=== PATIENT | male | born 1975 | race Caucasian/White ===

== ENCOUNTER 2017-04-15 21:24 | Observation (INO) | payer OTHER ==
[~2017-04-15] VITALS: Ht 182.9 cm; Wt 90.7 kg
[~2017-04-15 21:24] MED LIST: AGM875T PO; CARI250T PO; MMT17NA; OXYC-12 PO
--- OUTSIDE RECORDS SUMMARY | 2017-04-15 21:28 | XMS REPORT | Continuity of Care Document ---
Author Author [facility] Organization [facility] Address Unknown Phone Unavailable Allergies Active Description Code Type Severity Reaction Onset Reported/Identified Relationship to Patient Clinical Status Yes No Known Drug Allergies [id number] Drug Allergy Unknown N/ A 08/02/2014 Medications Problems Date Dx Coded Attending Type Code Diagnosis Diagnosed By 08/02/2014 Ot 722.52 08/02/2014 Ot 781.2 Procedures Results Encounters ACCT No. Visit Date/Time Discharge Status Pt. Type Provider Facility Loc./Unit Complaint [id number] 08/02/2014 21:46:00 2014 22:51:00 DIS Emergency TARIQ RIZZO APRN [facility] ER [id number] 04/15/2017 21:25:00 ACT Emergency GLENN BLUNT DO [facility] ER ELEV HR/WEAKNESS/SYNCOPE [id number] 08/27/2010 14:35:00 Document Registration
[2017-04-15] MEDS ORDERED: AMIT75TA2 (21:34)
[2017-04-15] MEDS ORDERED: MORP-34 (21:34)
[2017-04-15] MEDS ORDERED: MORP30TA (21:34)
[2017-04-15] MEDS ORDERED: CARI350T27 (21:34)
[2017-04-15 21:51] LABS: BASOPHILS # (AUTO) 0.1 10^3/uL (0.0-0.1); BASOPHILS % (AUTO) 0 % (0-10); EOSINOPHILS # (AUTO) 0.4 10^3/uL (0.0-0.3); EOSINOPHILS % (AUTO) 3 % (0-10); LYMPHOCYTES # (AUTO) 4.1 X 10^3 (1.0-4.0); LYMPHOCYTES % (AUTO) 29 % (12-44); MEAN CORPUSCULAR HEMOGLOBIN 31 PG (25-34); MEAN CORPUSCULAR HGB CONC 35 G/DL (32-36); MEAN CORPUSCULAR VOLUME 88 FL (80-99); MEAN PLATELET VOLUME 9.1 FL (7.4-10.4); MONOCYTES % (AUTO) 7 % (0-12); NEUTROPHILS # (AUTO) 8.7 X 10^3 (1.8-7.8); NEUTROPHILS % (AUTO) 61 % (42-75); PLATELET COUNT 241 10^3/uL (130-400); RED BLOOD COUNT 5.29 10^6/uL (4.35-5.85); WHITE BLOOD COUNT 14.2 10^3/uL (4.3-11.0)
[2017-04-15 21:54] LABS: PROTHROMBIN TIME PATIENT 13.1 SEC (12.2-14.7)
[2017-04-15 22:03] LABS: BAND NEUTROPHILS 1 %; BASOPHILS % (MANUAL) 0 %; EOSINOPHILS % (MANUAL) 0 %; LYMPHOCYTES % (MANUAL) 39 %; NEUTROPHILS % (MANUAL) 57 %
[2017-04-15 22:13] LABS: ALANINE AMINOTRANSFERASE 27 U/L (0-55); ALBUMIN 4.2 GM/DL (3.2-4.5); ANION GAP 11 MMOL/L (5-14); ASPARTATE AMINO TRANSFERASE 14 U/L (5-34); BILIRUBIN,TOTAL 0.2 MG/DL (0.1-1.0); BLOOD UREA NITROGEN 7 MG/DL (7-18); BUN/CREATININE RATIO 7; CARBON DIOXIDE 28 MMOL/L (21-32); CHLORIDE 101 MMOL/L (98-107); CREATINE KINASE 100 U/L (30-200); CREATININE SERUM 0.94 MG/DL (0.60-1.30); GFR ESTIMATED > 60; GLUCOSE 89 MG/DL (70-105); MAGNESIUM 2.1 MG/DL (1.8-2.4); POTASSIUM 3.8 MMOL/L (3.6-5.0); SODIUM 140 MMOL/L (135-145); TOTAL PROTEIN 7.2 GM/DL (6.4-8.2)
--- NOTE | 2017-04-15 22:22 | ED Cardiac General ---
History of Present Illness General Chief Complaint: Dizziness/Syncope Stated Complaint: ELEV HR/WEAKNESS/SYNCOPE Nursing Triage Note: SYNCOPAL EPISODE Source: patient, spouse History of Present Illness Time seen by provider: 21:40 Initial Comments PT ARRIVES VIA POV FROM HOME AROUND 2014 [place], PT WAS SITTING WATCHING TV, AND HAD SUDDEN ONSET OF RAPID AND POUNDING HEART BEAT, SOME CHEST PAIN, FELT SHORT OF BREATH AND VERY DIZZY AND PASSED OUT, HITTING HIS RIGHT BROW AREA ON PIECE OF FURNITURE HEARD HIM AND FOUND HIM ON THE FLOOR, WAS AWAKE BUT MILDLY CONFUSED FOR A SHORT PERIOD OF TIME PT STATES HIS CHEST STILL FEELS A LITTLE SORE, AND FEELS EXHAUSTED. NO SHORTNESS OF BREATH, NO DIZZINESS, AND NO PALPITATIONS AT THIS TIME AROUND 183, HAD INDIGESTION AND FELT A LITTLE SHORT OF BREATH, BUT DID NOT HAVE THE OTHER SYMPTOMS PT HAS HAD MULTIPLE EPISODES OF RAPID HEART BEAT OVER THE LAST 15 YEARS, BUT ONCE HE DID COME TO HOSPITAL, IT HAD RESOLVED. HAS NEVER WORN A HOLTER MONITOR OR HAD EVALUATION BY A ACUTE DIALYSIS REGISTERED NURSE. HAS NEVER PASSED OUT WITH IT BEFORE Allergies and Home Medications Allergies Coded Allergies: No Known Drug Allergies (Unverified , 08/02/14) Home Medications Amitriptyline HCl 75 Mg Tablet, (Reported) Carisoprodol 350 Mg Tablet, (Reported) Morphine Sulfate 30 Mg Tablet, (Reported) Morphine Sulfate 30 Mg Tablet.er, (Reported) Review of Systems Constitutional: see HPI, dizziness, malaise, weakness EENTM: Other (CONTUSION TO RIGHT BROW) Respiratory: See HPI, Shortness of Air Cardiovascular: See HPI, Chest Pain, Irregular Heart Rate, Lightheadedness, Palpitations, Syncope Gastrointestinal: See HPI, Other (INDIGESTION) Genitourinary: No Symptoms Reported Musculoskeletal: no symptoms reported Skin: no symptoms reported Psychiatric/Neurological: See HPI, Headache, Denies Numbness, Denies Paresthesia Endocrine: No Symptoms Reported Hematologic/Lymphatic: No Symptoms Reported Past Ckuxuxv-Scuzal-Claxot Hx Patient Social History Alcohol Use: Occasionally Uses Number of Drinks Today: 0 Alcohol Beverage of Choice: Beer Recreational Drug Use: No Smoking Status: Current Everyday Smoker Type Used: Cigarettes 2nd Hand Smoke Exposure: Yes Recent Foreign Travel: No Contact w/Someone Who Travel: No Recent Infectious Disease Expo: No Recent Hopitalizations: No Immunizations Up To Date Tetanus Booster (TDap): Unknown Seasonal Allergies Seasonal Allergies: Yes Surgeries History of Surgeries: Yes (L HAND) Surgeries: Orthopedic Respiratory History of Respiratory Disorde: No Cardiovascular History of Cardiac Disorders: Yes Cardiac Disorders: Palpitations Neurological History of Neurological Disord: No Reproductive System Hx Reproductive Disorders: No Sexually Transmitted Disease: No Genitourinary History of Genitourinary Disor: No Gastrointestinal History of Gastrointestinal Di: No Musculoskeletal History of Musculoskeletal Dis: Yes Musculoskeletal Disorders: Chronic Back Pain Endocrine History of Endocrine Disorders: No HEENT History of HEENT Disorders: No Cancer History of Cancer: No Psychosocial History of Psychiatric Problem: No Integumentary History of Skin or Integumenta: No Blood Transfusions History of Blood Disorders: No Physical Exam Vital Signs Vital Sign - Last 12Hours 04/15/17 04/15/17 21:30 21:35 Temp 97.9 Pulse 91 Resp 18 B/P (MAP) 140/101 (114) Pulse Ox 99 O2 Delivery Room Air Capillary Refill : Less Than 3 Seconds General Appearance: No Apparent Distress, WD/WN, Other (MILDLY LETHARGIC) HEENT: PERRL/EOMI, Other (CONTUSION/HEMATOMA TO RIGHT BROW) Neck: Full Range of Motion, Normal Inspection, Non Tender, Supple Respiratory: Normal Breath Sounds, No Accessory Muscle Use, No Respiratory Distress Cardiovascular: Regular Rate, Rhythm, No Edema, No JVD, No Murmur, Normal Peripheral Pulses Gastrointestinal: Normal Bowel Sounds, No Organomegaly, No Pulsatile Mass, Non Tender, Soft Extremity: Normal Capillary Refill, Normal Inspection, Normal Range of Motion, Non Tender, No Calf Tenderness, No Pedal Edema Neurologic/Psychiatric: Alert, Oriented x3, No Motor/Sensory Deficits, Normal Mood/Affect, 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 Skin: Normal Color, Warm/Dry, No Rash Progress/Results/Core Measures Results/Orders Lab Results Laboratory Tests Test 04/15/17 21:34 04/15/17 21:48 Range/Units White Blood Count 14.2 H 4.3-11.0 10^3/uL Red Blood Count 5.29 4.35-5.85 10^6/uL Hemoglobin 16.3 13.3-17.7 G/DL Hematocrit 47 40-54 % Mean Corpuscular Volume 88 80-99 FL Mean Corpuscular Hemoglobin 31 25-34 PG Mean Corpuscular Hemoglobin Concent 35 32-36 G/DL Red Cell Distribution Width 13.0 10.0-14.5 % Platelet Count 241 130-400 10^3/uL Mean Platelet Volume 9.1 7.4-10.4 FL Neutrophils (%) (Auto) 61 42-75 % Lymphocytes (%) (Auto) 29 12-44 % Monocytes (%) (Auto) 7 0-12 % Eosinophils (%) (Auto) 3 0-10 % Basophils (%) (Auto) 0 0-10 % Neutrophils # (Auto) 8.7 H 1.8-7.8 X 10^3 Lymphocytes # (Auto) 4.1 H 1.0-4.0 X 10^3 Monocytes # (Auto) 1.0 0.0-1.0 X 10^3 Eosinophils # (Auto) 0.4 H 0.0-0.3 10^3/uL Basophils # (Auto) 0.1 0.0-0.1 10^3/uL Neutrophils % (Manual) 57 % Lymphocytes % (Manual) 39 % Monocytes % (Manual) 3 % Eosinophils % (Manual) 0 % Basophils % (Manual) 0 % Band Neutrophils 1 % Blood Morphology Comment NORMAL Prothrombin Time 13.1 12.2-14.7 SEC INR Comment 1.0 0.8-1.4 Activated Partial Thromboplast Time 30 24-35 SEC Sodium Level 140 135-145 MMOL/L Potassium Level 3.8 3.6-5.0 MMOL/L Chloride Level 101 98-107 MMOL/L Carbon Dioxide Level 28 21-32 MMOL/L Anion Gap 11 5-14 MMOL/L Blood Urea Nitrogen 7 7-18 MG/DL Creatinine 0.94 0.60-1.30 MG/DL Estimat Glomerular Filtration Rate > 60 BUN/Creatinine Ratio 7 Glucose Level 89 70-105 MG/DL Calcium Level 9.0 8.5-10.1 MG/DL Magnesium Level 2.1 1.8-2.4 MG/DL Total Bilirubin 0.2 0.1-1.0 MG/DL Aspartate Amino Transf (AST/SGOT) 14 5-34 U/L Alanine Aminotransferase (ALT/SGPT) 27 0-55 U/L Alkaline Phosphatase 78 40-136 U/L Total Creatine Kinase 100 30-200 U/L Creatine Kinase MB 0.9 <6.6 NG/ML Troponin I < 0.30 <0.30 NG/ML B-Type Natriuretic Peptide < 10.0 <100.0 PG/ML Total Protein 7.2 6.4-8.2 GM/DL Albumin 4.2 3.2-4.5 GM/DL TSH [place] Testing 2.17 0.35-4.94 UIU/ML Glucometer 97 70-110 MG/DL My Orders Orders - GLENN BLUNT DO Accucheck Stat ONCE (04/15/17 21:39) Saline Lock/Iv-Start (04/15/17 21:39) Ekg Tracing (04/15/17 21:39) O2 (04/15/17 21:39) Monitor-Rhythm Ecg Trace Only (04/15/17 21:39) Ct Head Wo-R/O Stroke (04/15/17 21:39) BNP (04/15/17 21:39) Cbc With Automated Diff (04/15/17 21:39) Comprehensive Metabolic Panel (04/15/17 21:39) Creatine Kinase (04/15/17 21:39) Creatine Kinase Mb (04/15/17 21:39) Drug Screen Stat (Urine) (04/15/17 21:39) Magnesium (04/15/17 21:39) Protime With Inr (04/15/17 21:39) Partial Thromboplastin Time (04/15/17 21:39) Thyroid Analyzer (04/15/17 21:39) Troponin I (04/15/17 21:39) Ua Culture If Indicated (04/15/17 21:39) Chest 1 View, Ap/Pa Only (04/15/17 21:39) Manual Differential (04/15/17 21:34) Vital Signs/I&O Vital Sign - Last 12Hours 04/15/17 04/15/17 21:30 21:35 Temp 97.9 Pulse 91 Resp 18 B/P (MAP) 140/101 (114) Pulse Ox 99 99 O2 Delivery Room Air Room Air Blood Pressure Mean: 114 Point of Care Testing Finger Stick Blood Glucose: 97 Blood Glucose Action Taken: RN Notified Progress Note : Progress Note UNEVENTFUL ER STAY ECG Initial ECG Impression Time: 21:29 Initial ECG Rate: 93 Initial ECG Rhythm: Normal Sinus Initial ECG Comparisson: No Previous ECG Available EKG : EKG Time: 21:48 Rate: 87 Rhythm: Normal Sinus Intervals: Normal Diagnostic Imaging Comments CT HEAD-NO ACUTE PROCESS, PER [facility] VIA FAX @ 0625 CXR--NO ACUTE PROCESS, PENDING RADIOLOGIST REVIEW Reviewed: Reviewed by Me Departure Communication (Admissions) Progress Notes 2309--ATTEMPTING TO CONTACT DR. POTTS, MESSAGE LEFT ON CELL PHONE [phone]--ATTEMPTING TO CONTACT DR. POTTS, MESSAGE LEFT ON CELL PHONE, NO ANSWER ON HOME PHONE [phone]--SPOKE WITH DR. AREVALO, ACCEPTS PT FOR ADMIT [phone]--SPOKE WITH DR. POTTS, WILL SEE PT IN CONSULT Impression Impression: Primary Impression: PALPITATIONS WITH SYNCOPE Additional Impressions: Chest pain Head contusion Disposition: ADMITTED INPATIENT Condition: Stable Admissions Decision to Admit Reason: Admit from ER (General) Decision to Admit/Date: Apr 15, 2017 Time/Decision to Admit Time: 23:40 Departure-Patient Inst. Referrals: NO,LOCAL PHYSICIAN (PCP/Family) Primary Care Physician GLENN BLUNT DO Apr 15, 2017 22:22
[2017-04-15 22:57] LABS: TROPONIN I < 0.30 NG/ML (<0.30)
[2017-04-15] MEDS ORDERED: ASPIRIN 81 MG CHEW (CHILDREN'S ASA) PO ONE (23:45)
[2017-04-15 23:59] LABS: BILIRUBIN,URINE NEGATIVE (NEGATIVE); KETONES,URINE 1+ (NEGATIVE); LEUKOCYTE ESTERASE ,URINE 1+ (NEGATIVE); NITRITE,URINE NEGATIVE (NEGATIVE); PH,URINE 5 (5-9); PROTEIN,URINE 1+ (NEGATIVE); UROBILINOGEN,URINE 1 MG/DL (NORMAL)
[2017-04-16] VITALS (17 sets, daily range): BP systolic 92–119; BP diastolic 61–86
[2017-04-16 00:07] LABS: CALCIUM OXALATE CRYSTALS,UR RARE /LPF; SQUAMOUS EPITHELIAL CELL,UR RARE /HPF; WBC,URINE RARE /HPF
[2017-04-16] MEDS ORDERED: morphine INJ 4 MG/ML 1 ML (VIAL/SYRINGE) IV PRN (01:30)
[2017-04-16] MEDS ORDERED: CATHETER FLUSH 10 ML SYR IV PRN (01:30)
[2017-04-16] MEDS ORDERED: NITROGLYCERIN 0.4 MG SL TABS BTL 25'S SL PRN (01:30)
[2017-04-16] MEDS ORDERED: 1/2 NS IV SOLUTION 1,000 ML IV SCH (01:30)
[2017-04-16 04:27] LABS: BASOPHILS % (AUTO) 0 % (0-10); EOSINOPHILS # (AUTO) 0.5 10^3/uL (0.0-0.3); EOSINOPHILS % (AUTO) 4 % (0-10); LYMPHOCYTES # (AUTO) 4.2 X 10^3 (1.0-4.0); LYMPHOCYTES % (AUTO) 38 % (12-44); MEAN CORPUSCULAR HEMOGLOBIN 30 PG (25-34); MEAN CORPUSCULAR HGB CONC 34 G/DL (32-36); MEAN CORPUSCULAR VOLUME 89 FL (80-99); MEAN PLATELET VOLUME 9.1 FL (7.4-10.4); MONOCYTES # (AUTO) 0.8 X 10^3 (0.0-1.0); MONOCYTES % (AUTO) 7 % (0-12); NEUTROPHILS # (AUTO) 5.7 X 10^3 (1.8-7.8); NEUTROPHILS % (AUTO) 51 % (42-75); PLATELET COUNT 224 10^3/uL (130-400); RED BLOOD COUNT 4.91 10^6/uL (4.35-5.85); RED CELL DISTRIBUTION WIDTH 13.2 % (10.0-14.5); WHITE BLOOD COUNT 11.2 10^3/uL (4.3-11.0)
[2017-04-16 04:44] LABS: MYOGLOBIN SERUM 32.9 NG/ML (10.0-92.0)
[2017-04-16 04:48] LABS: ALANINE AMINOTRANSFERASE 23 U/L (0-55); ALBUMIN 3.7 GM/DL (3.2-4.5); ANION GAP 10 MMOL/L (5-14); ASPARTATE AMINO TRANSFERASE 13 U/L (5-34); BILIRUBIN,TOTAL 0.2 MG/DL (0.1-1.0); BLOOD UREA NITROGEN 7 MG/DL (7-18); BUN/CREATININE RATIO 8; CALCIUM 8.5 MG/DL (8.5-10.1); CARBON DIOXIDE 27 MMOL/L (21-32); CHLORIDE 101 MMOL/L (98-107); CHOLESTEROL 208 MG/DL (< 200); CREATININE SERUM 0.87 MG/DL (0.60-1.30); DIRECT LDL 151 MG/DL (1-129); GFR ESTIMATED > 60; GLUCOSE 86 MG/DL (70-105); POTASSIUM 4.1 MMOL/L (3.6-5.0); SODIUM 138 MMOL/L (135-145); TOTAL PROTEIN 6.1 GM/DL (6.4-8.2); TRIGLYCERIDES 141 MG/DL (<150); VLDL CHOLESTEROL 28 MG/DL (5-40)
--- NOTE | 2017-04-16 05:59 | Diagnostic Imaging Report ---
Exam: CT head without contrast. TECHNIQUE: Axial CT images of the head were obtained without the use of intravenous contrast. DATE: 04/15/2017. COMPARISON: None. INDICATION: 41-year-old male, headache and syncope. FINDINGS: The ventricles and cerebral spinal fluid spaces are of normal size and configuration for the patient's age. There is no mass effect or midline shift. There is no acute intracranial hemorrhage. There is no abnormal extra-axial fluid collection. There is pneumatization of the left petrous apex. There is a polypoid lesion in the right maxillary sinus likely relating to mucous retention cyst. There is mucosal thickening of the left maxillary sinus. Additional visualized portions of the paranasal sinuses, mastoid air cells, and middle ears are well aerated. IMPRESSION: 1. No identified acute intracranial abnormality. Dictated by: Dictated on workstation # [id number]
[2017-04-16] MEDS ORDERED: CATHETER FLUSH 10 ML SYR IV SCH (06:00)
--- NOTE | 2017-04-16 06:05 | Diagnostic Imaging Report ---
EXAMINATION: Chest radiograph, portable AP view. DATE: April 15, 2017 at 2203 hours. INDICATION: 41-year-old male, syncope. Chest pain. Headache. COMPARISON: None. FINDINGS: Heart size and mediastinal contours are unremarkable. There is no identified pneumothorax. There is no large pleural effusion. There is no identified focal airspace consolidation. IMPRESSION: No identified acute cardiopulmonary abnormality. Dictated by: Dictated on workstation # [id number]
[2017-04-16] MEDS ORDERED: INFLUENZA TRIvalent 2017-2018 0.5 ML/45 MCG SYR IM ONE (08:00)
--- NOTE | 2017-04-16 08:53 | Consultation-Cardiology ---
HPI-Cardiology Cardiology Consultation Date of Consultation 04/16/17 Date of Admission Time Seen by Provider: 08:48 Indication: syncope HPI 41 years old gentleman with history of palpitation, feeling rapid heart rate with some lightheadedness and dizziness lasting between 2-5 minutes for the last 15-20 years occurring about once or twice a year. Last night felt palpitations that lasted longer, he tried to stand up where he fell to the floor and passed out. Found by his who is an ICU nurse at the floor, woke up within a few seconds, felt slightly dizzy for about a minute or 2 then went back to normal. He came to the emergency room, has been monitored overnight and has been feeling well. No further episodes were reported. Admit having some shortness of breath and chest pain during the rapid heart rate episodes. Drinks large amount of coffee and smokes half pack a day. We had a discussion about smoking cessation on avoiding caffeine products Home Medications & Allergies Allergies: Coded Allergies: No Known Drug Allergies (Unverified , 08/02/14) Home Medication List Reviewed: Yes HYP-Fvccim-Zagtrs Hx Patient Social History Marital Status: Employed/Student: employed Alcohol Use: Denies Use Recreational Drug Use: No Smoking Status: Current Everyday Smoker Type Used: Cigarettes 2nd Hand Smoke Exposure: Yes Recent Foreign Travel: No Recent Infectious Disease Expo: No Recent Hopitalizations: No Physical Abuse Screen: No Sexual Abuse: No Immunizations Up To Date Tetanus Booster (TDap): Unknown Past Medical History Back pain Palpitation Dizziness Family Medical History Family Medical Hx grandmother had history of heart attack and sudden in her 60s Constitutional: see HPI, dizziness EENTM: see HPI, no symptoms reported Respiratory: see HPI, No cough, No dyspnea on exertion, No hemoptysis, No orthopnea, No phlegm, No short of breath, No stridor, No wheezing, other ( dyspnea during palpitation episode) Cardiovascular: see HPI, chest pain, palpitations, syncope, other Gastrointestinal: no symptoms reported, see HPI Genitourinary: no symptoms reported, see HPI Musculoskeletal: no symptoms reported, see HPI, back pain, joint pain, muscle stiffness Skin: no symptoms reported, see HPI Psychiatric/Neurological: No Symptoms Reported, See HPI Reviewed Test Results Reviewed Test Results Lab Laboratory Tests Test 04/15/17 21:34 04/15/17 21:48 04/15/17 23:50 12/9/17 03:44 Range/Units White Blood Count 14.2 H 11.2 H 4.3-11.0 10^3/uL Red Blood Count 5.29 4.91 4.35-5.85 10^6/uL Hemoglobin 16.3 14.9 13.3-17.7 G/DL Hematocrit 47 44 40-54 % Mean Corpuscular Volume 88 89 80-99 FL Mean Corpuscular Hemoglobin 31 30 25-34 PG Mean Corpuscular Hemoglobin Concent 35 34 32-36 G/DL Red Cell Distribution Width 13.0 13.2 10.0-14.5 % Platelet Count 241 224 130-400 10^3/uL Mean Platelet Volume 9.1 9.1 7.4-10.4 FL Neutrophils (%) (Auto) 61 51 42-75 % Lymphocytes (%) (Auto) 29 38 12-44 % Monocytes (%) (Auto) 7 7 0-12 % Eosinophils (%) (Auto) 3 4 0-10 % Basophils (%) (Auto) 0 0 0-10 % Neutrophils # (Auto) 8.7 H 5.7 1.8-7.8 X 10^3 Lymphocytes # (Auto) 4.1 H 4.2 H 1.0-4.0 X 10^3 Monocytes # (Auto) 1.0 0.8 0.0-1.0 X 10^3 Eosinophils # (Auto) 0.4 H 0.5 H 0.0-0.3 10^3/uL Basophils # (Auto) 0.1 0.0 0.0-0.1 10^3/uL Neutrophils % (Manual) 57 % Lymphocytes % (Manual) 39 % Monocytes % (Manual) 3 % Eosinophils % (Manual) 0 % Basophils % (Manual) 0 % Band Neutrophils 1 % Blood Morphology Comment NORMAL Prothrombin Time 13.1 12.2-14.7 SEC INR Comment 1.0 0.8-1.4 Activated Partial Thromboplast Time 30 24-35 SEC Sodium Level 140 138 135-145 MMOL/L Potassium Level 3.8 4.1 3.6-5.0 MMOL/L Chloride Level 101 101 98-107 MMOL/L Carbon Dioxide Level 28 27 21-32 MMOL/L Anion Gap 11 10 5-14 MMOL/L Blood Urea Nitrogen 7 7 7-18 MG/DL Creatinine 0.94 0.87 0.60-1.30 MG/DL Estimat Glomerular Filtration Rate > 60 > 60 BUN/Creatinine Ratio 7 8 Glucose Level 89 86 70-105 MG/DL Calcium Level 9.0 8.5 8.5-10.1 MG/DL Magnesium Level 2.1 1.8-2.4 MG/DL Total Bilirubin 0.2 0.2 0.1-1.0 MG/DL Aspartate Amino Transf (AST/SGOT) 14 13 5-34 U/L Alanine Aminotransferase (ALT/SGPT) 27 23 0-55 U/L Alkaline Phosphatase 78 72 40-136 U/L Total Creatine Kinase 100 30-200 U/L Creatine Kinase MB 0.9 <6.6 NG/ML Troponin I < 0.30 < 0.30 <0.30 NG/ML B-Type Natriuretic Peptide < 10.0 <100.0 PG/ML Total Protein 7.2 6.1 L 6.4-8.2 GM/DL Albumin 4.2 3.7 3.2-4.5 GM/DL TSH [place] Testing 2.17 0.35-4.94 UIU/ML Glucometer 97 70-110 MG/DL Urine Color YELLOW Urine Clarity CLEAR Urine pH 5 5-9 Urine Specific [place] 1.025 H 1.016-1.022 Urine Protein 1+ H NEGATIVE Urine Glucose (UA) NEGATIVE NEGATIVE Urine Ketones 1+ H NEGATIVE Urine Nitrite NEGATIVE NEGATIVE Urine Bilirubin NEGATIVE NEGATIVE Urine Urobilinogen 1 NORMAL MG/DL Urine Leukocyte Esterase 1+ H NEGATIVE Urine RBC (Auto) NEGATIVE NEGATIVE Urine RBC NONE /HPF Urine WBC RARE /HPF Urine Squamous Epithelial Cells RARE /HPF Urine Crystals PRESENT H /LPF Urine Calcium Oxalate Crystals RARE H /LPF Urine Bacteria TRACE /HPF Urine Casts NONE /LPF Urine Mucus MODERATE H /LPF Urine Culture Indicated NO Urine Opiates Screen POSITIVE H NEGATIVE Urine Oxycodone Screen NEGATIVE NEGATIVE Urine Methadone Screen NEGATIVE NEGATIVE Urine Propoxyphene Screen NEGATIVE NEGATIVE Urine Barbiturates Screen NEGATIVE NEGATIVE Ur Tricyclic Antidepressants Screen POSITIVE H NEGATIVE Urine Phencyclidine Screen NEGATIVE NEGATIVE Urine Amphetamines Screen NEGATIVE NEGATIVE Urine Methamphetamines Screen NEGATIVE NEGATIVE Urine Benzodiazepines Screen NEGATIVE NEGATIVE Urine Cocaine Screen NEGATIVE NEGATIVE Urine Cannabinoids Screen NEGATIVE NEGATIVE Myoglobin 32.9 10.0-92.0 NG/ML Triglycerides Level 141 <150 MG/DL Cholesterol Level 208 H < 200 MG/DL LDL Cholesterol Direct 151 H 1-129 MG/DL VLDL Cholesterol 28 5-40 MG/DL HDL Cholesterol 38 L 40-60 MG/DL Physical Exam Vital Signs Vital Sign - Last 12Hours 04/15/17 04/15/17 21:30 21:35 Temp 97.9 Pulse 91 Resp 18 B/P (MAP) 140/101 (114) Pulse Ox 99 O2 Delivery Room Air Capillary Refill : Less Than 3 Seconds General Appearance: No Apparent Distress, WD/WN Eyes: Bilateral Eye Normal Inspection, Bilateral Eye PERRL, Bilateral Eye EOMI HEENT: PERRL/EOMI, TMs Normal, Normal ENT Inspection, Pharynx Normal Neck: Full Range of Motion, Normal Inspection, Non Tender, Supple, Carotid Bruit Respiratory: Chest Non Tender, Lungs Clear, Normal Breath Sounds, No Accessory Muscle Use, No Respiratory Distress Cardiovascular: Regular Rate, Rhythm, No Edema, No Gallop, No JVD, No Murmur, Normal Peripheral Pulses Gastrointestinal: Normal Bowel Sounds, No Organomegaly, No Pulsatile Mass, Non Tender, Soft Back: Normal Inspection, No CVA Tenderness, No Vertebral Tenderness Extremity: Normal Capillary Refill, Normal Inspection, Normal Range of Motion, Non Tender, No Calf Tenderness, No Pedal Edema Neurologic/Psychiatric: Alert, Oriented x3, No Motor/Sensory Deficits, Normal Mood/Affect Skin: Normal Color, Warm/Dry Lymphatic: No Adenopathy A/P-Cardiology Admission Diagnosis Syncope Palpitation Hyperlipidemia Tobaccoism Assessment/Plan Syncope, associated with palpitation, questionable underlying arrhythmia. EKG did not show any acute abnormality. Labs were normal except for hyperlipidemia. I am planning to evaluate echocardiogram, Holter monitor and stress test. Recommended avoiding caffeine at this point. Hyperlipidemia, continue to monitor, diet control at this time. Tobaccoism, educated on avoiding tobacco product Heavy caffeine use, educated on avoiding caffeine Chronic back pain, degenerative disc disease in L4-L5 and L5-S1, maintained on pain medication, managed by primary care physician Clinical Quality Measures DVT/VTE Risk/Contraindication: Risk Factor Score Per Nursin RFS Level Per Nursing on Admit: 2=Moderate LESTER POTTS MD Apr 16, 2017 08:53
[2017-04-16] MEDS ORDERED: ASPIRIN E.C. 325 MG (ECOTRIN) TABLET PO SCH (09:00)
--- NOTE | 2017-04-16 09:42 | Short Stay Summary-Hospitalist ---
HPI History of Present Illness: HPI/Chief Complaint Pt is a 41yoCM with a PMH of chronic pain who presented to the ER yesterday after being found down by his . He reports he felt his heart start to race and developed chest pain and throat pain. He also felt lightheaded during this. He believes he tried to stand up and then passed out. His found his face down on the floor and felt that he was still breathing and had a pulse. He awoke roughly 20s after this and was confused for another 20s or so. did not witness any convulsions. He did not bite his tongue or have any bladder or bowel incontinence. He did feel more tired yesterday with some SOB and what he thought was heartburn. He reports this has been happening for 15-16 years and has happened about 12 times but he does have episodes of his heart racing in between where he doesn't pass out. Source: patient, family Date Seen 04/16/17 Time Seen by Provider: 09:20 Attending Physician Ede Grady MD PCP No,Local Physician Referring Physician Date of Admission Apr 15, 2017 at 11:40 pm Home Medications & Allergies Home Medications Reviewed patient Home Medication Reconciliation Form Allergies Allergies Coded Allergies No Known Drug Allergies (Unverified08/02/14) Past Phpqehb-Rfrokv-Bjeatw Hx Patient Social History Marrital Status: Employed/Student: employed Alcohol Use: Denies Use Number of Drinks Today: 0 Alcohol Beverage of Choice: Beer Recreational Drug Use: No Smoking Status: Current Everyday Smoker Type Used: Cigarettes 2nd Hand Smoke Exposure: Yes Physical Abuse Screen: No Sexual Abuse: No Recent Foreign Travel: No Contact w/other who traveled: No Recent Hopitalizations: No Recent Infectious Disease Expo: No Immunizations Up To Date Tetanus Booster (TDap): Unknown Seasonal Allergies Seasonal Allergies: Yes Surgeries Yes (L HAND) Orthopedic Respiratory No Cardiovascular Yes Palpitations Neurological No Reproductive System Hx Reproductive Disorders: No Sexually Transmitted Disease: No Genitourinary No Gastrointestinal No Musculoskeletal Yes (needs back surgery) Chronic Back Pain Endocrine History of Endocrine Disorders: No HEENT History of HEENT Disorders: No Cancer No Psychosocial History of Psychiatric Problem: No Integumentary History of Skin or Integumenta: No Blood Transfusions History of Blood Disorders: No Review of Systems Constitutional: No chills, No diaphoresis, No fever EENTM: No blurred vision, No double vision, No vision loss, No nose congestion , No throat pain Respiratory: No cough, No dyspnea on exertion, short of breath Cardiovascular: chest pain, No edema, palpitations, syncope Gastrointestinal: No abdominal pain, No constipation, No diarrhea, No nausea, No vomiting Genitourinary: No dysuria, No frequency Musculoskeletal: back pain (chronic), No joint pain, No muscle pain Skin: No lesions, No rash Psychiatric/Neurological: Denies Headache, Denies Numbness, Denies Tingling, Denies Weakness Physical Exam Physical Exam Vital Signs Vital Sign - Last 12Hours 04/15/17 04/15/17 21:30 21:35 Temp 97.9 Pulse 91 Resp 18 B/P (MAP) 140/101 (114) Pulse Ox 99 O2 Delivery Room Air Capillary Refill : Less Than 3 Seconds General Appearance: No Apparent Distress, WD/WN HEENT: PERRL/EOMI, Moist Mucous Membranes Neck: Non Tender, Supple Respiratory: Lungs Clear, No Respiratory Distress Cardiovascular: Regular Rate, Rhythm, No Murmur Gastrointestinal: Normal Bowel Sounds, Non Tender, Soft Extremity: Non Tender, No Calf Tenderness, No Pedal Edema Neurologic/Psychiatric: Alert, Oriented x3, Normal Mood/Affect Skin: Normal Color, Warm/Dry Results Results/Procedures Lab Laboratory Tests 04/15/17 21:34 04/16/17 03:44 Radiology Exam: CT head without contrast. TECHNIQUE: Axial CT images of the head were obtained without the use of intravenous contrast. DATE: 04/15/2017. COMPARISON: None. INDICATION: 41-year-old male, headache and syncope. FINDINGS: The ventricles and cerebral spinal fluid spaces are of normal size and configuration for the patient's age. There is no mass effect or midline shift. There is no acute intracranial hemorrhage. There is no abnormal extra-axial fluid collection. There is pneumatization of the left petrous apex. There is a polypoid lesion in the right maxillary sinus likely relating to mucous retention cyst. There is mucosal thickening of the left maxillary sinus. Additional visualized portions of the paranasal sinuses, mastoid air cells, and middle ears are well aerated. IMPRESSION: 1. No identified acute intracranial abnormality. CHEST 1 VIEW, AP/PA ONLY EXAMINATION: Chest radiograph, portable AP view. DATE: April 15, 2017 at 2203 hours. INDICATION: 41-year-old male, syncope. Chest pain. Headache. COMPARISON: None. FINDINGS: Heart size and mediastinal contours are unremarkable. There is no identified pneumothorax. There is no large pleural effusion. There is no identified focal airspace consolidation. IMPRESSION: No identified acute cardiopulmonary abnormality. Short Stay Diagnosis Discharge Diagnosis-Short Stay Admission Diagnosis Syncope Final Discharge Diagnosis Syncope Conclusion Plan See problems Diagnosis/Problems Diagnosis/Problems (1) Syncope and collapse Status: Acute Assessment & Plan: Given history and current symptoms likely cardiac in nature Echo done today. Dr Jeffers currently reading- per verbal report no significant abnormalities. Cardiology consulted Will schedule for outpatient tilt table,holter monitor, and stress test per Dr. Jeffers's office is Rn who will facilitate adequate follow up (2) Chronic pain Status: Chronic Assessment & Plan: Continue current pain medicines Qualifiers: Qualified Codes: G89.29 - Other chronic pain (3) Leukocytosis Status: Acute Assessment & Plan: Likely reactive No signs of infection or sepsis (4) Hyperlipidemia Assessment & Plan: LDL 151 ASCVD risk 5.4% Clinical Quality Measures DVT/VTE Risk/Contraindication: Risk Factor Score Per Nursin RFS Level Per Nursing on Admit: 2=Moderate EDE GRADY MD Apr 16, 2017 09:42
[2017-04-16] MEDS ORDERED: MORP-34 PO (09:52)
[2017-04-16] MEDS ORDERED: MORP15TA PO (09:52)
== END 2017-04-16 11:02 | disposition home or self-care (01) ==
LOC: EDUNIT# 21:24 → ER 21:25 → ICU 23:40
PROVIDERS: ADMIT Family Medicine; ATTEND Family Medicine
DX: R55 Syncope and collapse (principal); R00.2 Palpitations; S00.83XA Contusion of other part of head, initial encounter; E78.5 Hyperlipidemia, unspecified; M51.36 Other intervertebral disc degeneration, lumbar region; M51.37 Other intervertebral disc degeneration, lumbosacral region; G89.29 Other chronic pain; R07.9 Chest pain, unspecified; Z79.899 Other long term (current) drug therapy; F17.210 Nicotine dependence, cigarettes, uncomplicated; Y92.019 Unspecified place in single-family (private) house as the place of occurrence of the external cause; W01.190A Fall on same level from slipping, tripping and stumbling with subsequent striking against furniture, initial encounter
CPT/HCPCS: 36415; 70450; 71010; 80053; 80061; 80306; 81000; 82550; 82553; 82962; 83735; 83874; 83880; 84443; 84484; 85007; 85025; 85027; 85610; 85730; 93005; 93041; 93306

== ENCOUNTER 2017-04-18 12:53 | Outpatient (RCR) | payer OTHER ==
[~2017-04-18 12:53] MED LIST changes: +AMIT75TA2; +CARI350T27; +MORP-34; +MORP-34 PO; +MORP15TA PO; +MORP30TA
== END 2017-07-17 | disposition home or self-care (01) ==
LOC: CARD 12:53
PROVIDERS: ATTEND Internal Medicine Cardiovascular Disease
DX: R55 Syncope and collapse (principal); R07.89 Other chest pain; R00.2 Palpitations
CPT/HCPCS: 93225; 93226

== ENCOUNTER → 2017-04-25 | Outpatient (CLI) | payer OTHER | LOC: CARD 08:46 | PROVIDERS: ATTEND Internal Medicine Cardiovascular Disease | DX: R07.89 Other chest pain (principal); R00.2 Palpitations; R55 Syncope and collapse | CPT/HCPCS: 93017 ==

== ENCOUNTER 2019-01-01 14:37 | Outpatient (RCR) | payer OTHER | END 2019-04-01 | disposition home or self-care (01) | LOC: CARD 14:37 | PROVIDERS: ATTEND Internal Medicine Interventional Cardiology | DX: R55 Syncope and collapse (principal); E78.49 Other hyperlipidemia; R00.2 Palpitations; Z72.0 Tobacco use | CPT/HCPCS: 93306 ==

== ENCOUNTER 2021-04-22 20:57 | Emergency (ER) | payer OTHER ==
[~2021-04-22] VITALS: Ht 185.2 cm; Wt 97.5 kg
[~2021-04-22 20:57] MED LIST changes: -MORP-34; -MORP-34 PO; +MORP-69; +MORP-69 PO
[2021-04-22] MEDS ORDERED: PROCHLORPERAZINE 10 MG/2ML INJ (COMPAZINE) IV ONE (21:00)
[2021-04-22] MEDS ORDERED: LACTATED RINGERS 1,000 ML IV SCH (21:00)
[2021-04-22] MEDS ORDERED: diphenhydrAMINE 50 MG/ML INJ (BENADRYL) IVP ONE (21:00)
[2021-04-22] MEDS ORDERED: KETOROLAC 30 MG/ML VIAL IVP ONE (21:00)
[2021-04-22] MEDS ORDERED: CATHETER FLUSH 10 ML SYR IV PRN (21:15)
[2021-04-22] MEDS ORDERED: NS 100 ML (IVPB) BAG IV ONE (21:15)
[2021-04-22] MEDS ORDERED: IOHEXOL 350 MG/ML 100 ML (OMNIPAQUE 350) VIAL IV ONE (21:15)
[2021-04-22] MEDS ORDERED: HOLD METFORMIN - RECEIVED CONTRAST 20 ML VIAL IV SCH (21:15)
[2021-04-22 21:23] LABS: BASOPHILS # (AUTO) 0.1 10^3/uL (0.0-0.1); BASOPHILS % (AUTO) 0 % (0-10); EOSINOPHILS # (AUTO) 0.3 10^3/uL (0.0-0.3); EOSINOPHILS % (AUTO) 2 % (0-10); HEMATOCRIT 48 % (40-54); HEMOGLOBIN 16.8 g/dL (13.3-17.7); LYMPHOCYTES # (AUTO) 4.7 10^3/uL (1.0-4.0); LYMPHOCYTES % (AUTO) 34 % (12-44); MEAN CORPUSCULAR HEMOGLOBIN 31 pg (25-34); MEAN CORPUSCULAR HGB CONC 35 g/dL (32-36); MEAN CORPUSCULAR VOLUME 89 fL (80-99); MEAN PLATELET VOLUME 8.9 fL (9.0-12.2); MONOCYTES # (AUTO) 0.9 10^3/uL (0.0-1.0); MONOCYTES % (AUTO) 7 % (0-12); NEUTROPHILS # (AUTO) 7.8 10^3/uL (1.8-7.8); NEUTROPHILS % (AUTO) 56 % (42-75); PLATELET COUNT 298 10^3/uL (130-400); WHITE BLOOD COUNT 13.9 10^3/uL (4.3-11.0)
--- NOTE | 2021-04-22 21:23 | ED Headache ---
General Stated Complaint: HEADACHE Source: patient Exam Limitations: no limitations (TARIQ RIZZO APRN) History of Present Illness Date Seen by Provider: Apr 22, 2021 Time Seen by Provider: 21:21 Initial Comments To ER by private vehicle with reports of headaches. These have been severe and new in onset. They began on Tuesday (today is Tuesday) he denies fever chills or head injury. No history of migraines. Light worsens these headaches and soda as well as noise. This was in the front of his head bilaterally and a little in the back as well. He does have associated nausea and vomiting. He has had both Covid vaccines. He denies any other symptoms. He has chronic back pain and is on long-acting morphine and Soma for this. Denies any vision changes. States that the headache began as a mild ache and progressed throughout the course of several days and this was not a sudden onset or thunderclap style headache. Timing/Duration: 1 week, constant Severity/Quality: pressure Location: frontal Prior Headaches/Recent Trauma: no recent headache/trauma Associated Symptoms: nausea/vomiting (TARIQ RIZZO APRN) Allergies and Home Medications Allergies Coded Allergies: No Known Drug Allergies (Unverified , 08/02/14) Patient Home Medication List Home Medication List Reviewed: Yes (TARIQ RIZZO APRN) Amitriptyline HCl (Amitriptyline HCl) 75 Mg Tablet, (Reported) Entered as Reported by: HUSSEIN ROBLES on 04/15/172133 Carisoprodol (Carisoprodol) 350 Mg Tablet, (Reported) Entered as Reported by: HUSSEIN ROBLES on 04/15/172133 Ketorolac Tromethamine (Ketorolac Tromethamine) 10 Mg Tablet, 10 MG PO BID PRN for HEADACHE Prescribed by: TARIQ RIZZO on 04/22/21 2348 Morphine Sulfate (Morphine Sulfate ER) 30 Mg Tablet.er, 30 MG PO TID Prescribed by: EDE AREVALO on 04/16/17951 Morphine Sulfate (Morphine Sulfate IR Tablet) 15 Mg Tablet, 15 MG PO Q4H Prescribed by: EDE AREVALO on 04/16/1752 Ondansetron (Ondansetron Odt) 8 Mg Tab.rapdis, 8 MG PO Q6H Prescribed by: GLENN BLUNT on 04/23/21 0037 Prochlorperazine Maleate (Compazine) 10 Mg Tablet, 10 MG PO BID PRN for HEADACHE Prescribed by: TARIQ RIZZO on 04/22/21 2348 Sumatriptan Succinate (Imitrex) 50 Mg Tab, 50 MG PO BID PRN for HEADACHE Prescribed by: TARIQ RIZZO on 04/22/21 2348 Review of Systems Review of Systems Constitutional: see HPI; No chills, No fever Eyes: No Symptoms Reported Ears, Nose, Mouth, Throat: no symptoms reported Respiratory: no symptoms reported Cardiovascular: no symptoms reported Genitourinary: no symptoms reported Musculoskeletal: no symptoms reported Skin: no symptoms reported Psychiatric/Neurological: See HPI, Headache (TARIQ RIZZO APRN) Past Hmvrwkg-Cuggnw-Vncmcz Hx Immunizations Up To Date Tetanus Booster (TDap): Unknown (TARIQ RIZZO APRN) Seasonal Allergies Seasonal Allergies: Yes (TARIQ RIZZO APRN) Past Medical History Surgeries: Yes (L HAND) Orthopedic Respiratory: No Cardiac: Yes Palpitations Neurological: No Reproductive Disorders: No Sexually Transmitted Disease: No Genitourinary: No Gastrointestinal: No Musculoskeletal: Yes (needs back surgery) Chronic Back Pain Endocrine: No HEENT: No Cancer: No Psychosocial: No Integumentary: No Blood Disorders: No (TARIQ RIZZO APRN) Physical Exam Vital Signs Vital Signs - First Documented 04/22/21 21:05 Temp 36.0 Pulse 89 Resp 16 B/P (MAP) 147/98 (114) Pulse Ox 98 O2 Delivery Room Air (JOSE RAUL,GLENN K DO) Vital Signs Capillary Refill : (TARIQ RIZZO APRN) Height, Weight, BMI Height: 6'0.00" Weight: 200lbs. 0.0oz. 90.300153ol; 27.1 BMI Method:Stated General Appearance: WD/WN, no apparent distress, other (vomiting here, rates pain 10/10) HEENT: PERRL/EOMI, normal ENT inspection Respiratory: no respiratory distress, no accessory muscle use Gastrointestinal: normal bowel sounds, non tender, soft Extremities: normal range of motion, non-tender Psychiatric: alert, oriented x 3 Crainal Nerves: normal hearing, normal speech, PERRL Skin: normal color, warm/dry (TARIQ RIZZO APRN) Progress/Results/Core Measures Results/Orders Lab Results Laboratory Tests Test 04/22/21 21:10 Range/Units White Blood Count 13.9 H 4.3-11.0 10^3/uL Red Blood Count 5.45 4.30-5.52 10^6/uL Hemoglobin 16.8 13.3-17.7 g/dL Hematocrit 48 40-54 % Mean Corpuscular Volume 89 80-99 fL Mean Corpuscular Hemoglobin 31 25-34 pg Mean Corpuscular Hemoglobin Concent 35 32-36 g/dL Red Cell Distribution Width 12.5 10.0-14.5 % Platelet Count 298 130-400 10^3/uL Mean Platelet Volume 8.9 L 9.0-12.2 fL Immature Granulocyte % (Auto) 0 % Neutrophils (%) (Auto) 56 42-75 % Lymphocytes (%) (Auto) 34 12-44 % Monocytes (%) (Auto) 7 0-12 % Eosinophils (%) (Auto) 2 0-10 % Basophils (%) (Auto) 0 0-10 % Neutrophils # (Auto) 7.8 1.8-7.8 10^3/uL Lymphocytes # (Auto) 4.7 H 1.0-4.0 10^3/uL Monocytes # (Auto) 0.9 0.0-1.0 10^3/uL Eosinophils # (Auto) 0.3 0.0-0.3 10^3/uL Basophils # (Auto) 0.1 0.0-0.1 10^3/uL Immature Granulocyte # (Auto) 0.0 0.0-0.1 10^3/uL Erythrocyte Sedimentation Rate 1 0-15 MM/HR Prothrombin Time 13.6 12.2-14.7 SEC INR Comment 1.0 0.8-1.4 Sodium Level 140 135-145 MMOL/L Potassium Level 3.9 3.6-5.0 MMOL/L Chloride Level 103 98-107 MMOL/L Carbon Dioxide Level 22 21-32 MMOL/L Anion Gap 15 H 5-14 MMOL/L Blood Urea Nitrogen 9 7-18 MG/DL Creatinine 0.95 0.60-1.30 MG/DL Estimat Glomerular Filtration Rate 86 BUN/Creatinine Ratio 9 Glucose Level 103 70-105 MG/DL Calcium Level 9.4 8.5-10.1 MG/DL (JOSE RAUL,GLENN K DO) Medications Given in ED Current Medications Medications Dose Ordered Sig/Rola Route Start Time Stop Time Status Last Admin Dose Admin Diphenhydramine HCl 25 mg ONCE ONCE IVP 04/22/21 21:00 04/22/21 21:03 DC 04/22/21 21:30 25 MG Ketorolac Tromethamine 30 mg ONCE ONCE IVP 04/22/21 21:00 04/22/21 21:03 DC 04/22/21 21:35 30 MG Prochlorperazine Edisylate 5 mg ONCE ONCE IV 04/22/21 21:00 04/22/21 21:03 DC 04/22/21 21:32 5 MG (GLENN BLUNT DO) Vital Signs/I&O 04/22/21 04/22/21 04/23/21 21:05 23:50 00:45 Temp 36.0 36.0 Pulse 89 59 61 Resp 16 16 16 B/P (MAP) 147/98 (114) 117/80 97/68 Pulse Ox 98 97 97 O2 Delivery Room Air Room Air 04/23/21 00:00 Intake Total 1000 ml Balance 1000 ml (GLENN BLUNT DO) Progress Progress Note : Progress Note MIDNIGHT--ASSUMED CARE OF PT FROM DELVIS RIZZO, WAITING FOR RETURN PHONE CALL FROM NEUROSURGEON AT [facility] . PT'S CT SCAN IMAGES HAVE BEEN CLOUDED TO THAT FACILITY FOR NEUROSURGEON TO REVIEW. PT IS ESSENTIALLY PAIN-FREE, ONLY MILD RESIDUAL PRESSURE IN HEAD. (GLENN BLUNT DO) Diagnostic Imaging Comments CTA HEAD WITH AND WITHOUT --PER RADIOLOGIST REPORT Comparison made to noncontrast head CT of 04/15/2017. Compared to the prior study, there are new low-density subdural collections over the convexity on both sides, compatible with subdural hygromas or chronic hematomas. The collection on the left measured about 6 mm, collection on the right measuring about 6 mm as well. There is no intraparenchymal hemorrhage. Ventricles are normal in size. There is no intraparenchymal abnormality. Calvarial windows are unremarkable. CTA images demonstrate the distal vertebral arteries and basilar artery and posterior cerebral arteries to be patent. The bolus timing is somewhat poor. Distal internal carotid arteries and anterior cerebral arteries are unremarkable. The dural venous sinuses are patent. IMPRESSION: There are bilateral low-density subdural collections compatible with subdural hygromas or chronic hematomas. The subdural collections are symmetric on both sides measuring 6 mm. There is no intraparenchymal hemorrhage. There is no enhancing intracranial lesion. CTA images demonstrate no overt vascular abnormalities. Reviewed: Reviewed by Me (GLENN BLUNT DO) Departure Communication (Admissions) 1130-pain was 10 out of 10 on arrival now he rates it 1 out of 10. I have sent the images to [facility] in [place] and I am awaiting a phone call back from their neurosurgery service to advise if there is any need for emergent neurosurgical evaluation or if this can await outpatient follow-up. (TARIQ RIZZO APRN) Impression Primary Impression: Nontraumatic subdural hygroma Additional Impression: Headache Disposition: HOME, SELF-CARE Condition: Improved Departure-Patient Inst. Decision time for Depature: 22:49 (TARIQ RIZZO APRN) Decision time for Depature: 00:20 (GLENN BLUNT DO) Referrals: NO,LOCAL PHYSICIAN (PCP) Primary Care Physician SIXTO BOWERS APRN (Family) Primary Care Physician Patient Instructions: Headache, Adult (DC), Subdural Hematoma (DC) Add. Discharge Instructions: HOME, REST CONTINUE YOUR REGULAR MEDICATIONS PRESCRIBED FOLLOW UP WITH YOUR REGULAR DR THIS WEEK FOR FURTHER EVALUATION OF HEADACHE YOU MAY FOLLOW UP WITH NEUROSURGEON, DR. WADE, WITH [facility] IN [place]: 1 [facility] [address] [place] [address], [address] [place] [address] Get Directions [phone] Scripts Ondansetron (Ondansetron Odt) 8 Mg Tab.rapdis 8 MG PO Q6H, #10 TAB Prov: GLENN BLUNT DO 04/23/21 Sumatriptan Succinate (Imitrex) 50 Mg Tab 50 MG PO BID PRN for HEADACHE, #14 TAB Prov: TARIQ RIZZO APRN 04/22/21 Prochlorperazine Maleate (Compazine) 10 Mg Tablet 10 MG PO BID PRN for HEADACHE, #10 TAB Prov: TARIQ RIZZO APRN 04/22/21 Ketorolac Tromethamine (Ketorolac Tromethamine) 10 Mg Tablet 10 MG PO BID PRN for HEADACHE, #10 TAB Prov: TARIQ RIZZO APRN 04/22/21 TARIQ RIZZO APRN Apr 22, 2021 21:23 GLENN BLUNT DO Apr 23, 2021 00:35
[2021-04-22] MEDS ORDERED: NS IV 1000 ML 1,000 ML IV SCH (21:30)
[2021-04-22] MEDS ORDERED: LIDOCAINE 4% INJ (XYLOCAINE) 5ML AMP TOP ONE (21:30)
[2021-04-22] MEDS ORDERED: LIDOCAINE 2% 20 ML (XYLOCAINE) VIAL INJ ONE (21:30)
[2021-04-22] MEDS ORDERED: LIDOCAINE PF 2% 10 ML (XYLOCAINE) AMP INJ ONE (21:30)
[2021-04-22 21:36] LABS: PROTHROMBIN TIME PATIENT 13.6 SEC (12.2-14.7)
[2021-04-22 21:44] LABS: CALCIUM 9.4 MG/DL (8.5-10.1); CREATININE SERUM 0.95 MG/DL (0.60-1.30); ERYTHROCYTE SEDIMENTATION RATE 1 MM/HR (0-15); POTASSIUM 3.9 MMOL/L (3.6-5.0)
--- NOTE | 2021-04-22 22:36 | Diagnostic Imaging Report ---
INDICATION: Headache. TECHNIQUE: Noncontrast CT of the head was obtained. Subsequently, after intravenous administration of contrast, thin section axial CT angiography of the head was performed. Source data was reformatted into multiple MIP reformats. Delayed postcontrast acquisition of the head was also acquired. Auto Exposure Controls were utilized during the CT exam to meet ALARA standards for radiation dose reduction. Comparison made to noncontrast head CT of 04/15/2017. Compared to the prior study, there are new low-density subdural collections over the convexity on both sides, compatible with subdural hygromas or chronic hematomas. The collection on the left measured about 6 mm, collection on the right measuring about 6 mm as well. There is no intraparenchymal hemorrhage. Ventricles are normal in size. There is no intraparenchymal abnormality. Calvarial windows are unremarkable. CTA images demonstrate the distal vertebral arteries and basilar artery and posterior cerebral arteries to be patent. The bolus timing is somewhat poor. Distal internal carotid arteries and anterior cerebral arteries are unremarkable. The dural venous sinuses are patent. IMPRESSION: There are bilateral low-density subdural collections compatible with subdural hygromas or chronic hematomas. The subdural collections are symmetric on both sides measuring 6 mm. There is no intraparenchymal hemorrhage. There is no enhancing intracranial lesion. CTA images demonstrate no overt vascular abnormalities. Dictated by: Dictated on workstation # [id number]
[2021-04-22] MEDS ORDERED: SMTR50T PO (23:48)
[2021-04-22] MEDS ORDERED: PROC-1 PO (23:48)
[2021-04-22] MEDS ORDERED: KETO10TA PO (23:48)
[2021-04-23] MEDS ORDERED: ONDA8TAB13 PO (00:37)
[2021-04-23 00:45] VITALS: BP 97/68
[2021-04-23] MEDS ORDERED: fentaNYL INJ 100 MCG/2 ML AMP IVP ONE (11:15)
== END 2021-04-23 00:45 | disposition home or self-care (01) ==
LOC: EDUNIT# 20:57 → ER 20:59
DX: G96.08 Other cranial cerebrospinal fluid leak (principal)
CPT/HCPCS: 36415; 70496; 80048; 85025; 85610; 85652